=== PATIENT | male | born 1950 | race African-American/Black ===

== ENCOUNTER 2018-12-03 20:16 | Inpatient (IN) | payer OTHER ==
[~2018-12-03] VITALS: Ht 185.4 cm; Wt 71.2 kg
[2018-12-03] MEDS ORDERED: SODIUM CHLORIDE 0.9% 1,000 ML IV ONE (21:02)
[2018-12-03] MEDS ORDERED: PIPERACILLIN/TAZ 3.375G PREMIX 50 ML IV ONE (21:15)
[2018-12-03] MEDS ORDERED: VANCOMYCIN 1 G PREMIX 200 ML IV ONE (21:15)
[2018-12-03] MEDS ORDERED: SODIUM CHLORIDE 0.9% 1000ML BAG (SEPSIS BOLUS) IV ONE (21:15)
[2018-12-03] MEDS ORDERED: HYDROCORTISONE SOD SUCCINATE 100 MG/2 ML VIAL IV ONE (21:15)
[2018-12-03 21:23] LABS: BG BASE EXCESS 0.4 mmol/L (-2.0-2.0); BG CARBOXYHEMOGLOBIN 2.3 % (0.5-1.5); BG FRACTION INSPIRED OXYGEN 21; BG HCO3 ACT 23.3 mmol/L (22.0-26.0); BG METHEMOGLOBIN 0.3 % (0.0-1.5); BG OXYGEN SATURATION 94.9 % (92.0-98.5); BG OXYHEMOGLOBIN 92.4 % (94.0-97.0); BG PCO2 28.7 mmHg (35.0-45.0); BG PH 7.528 (7.350-7.450); BG PO2 73.5 mmHg (75.0-100.0); BG SAMPLE SITE RIGHT RADIAL; BG TOTAL HEMOGLOBIN 4.7 g/dL (12.0-18.0); BG VENT MODE ROOM AIR
[2018-12-03 21:41] LABS: MEAN CORPUSCULAR HEMOGLOBIN 33.9 pg (28.0-32.0); MEAN CORPUSCULAR VOLUME 101.5 fL (80.0-94.0); MEAN PLATELET VOLUME 7.2 fl (7.4-10.4); RED BLOOD CELL COUNT 1.41 mill/uL (4.7-6.1); RED CELL DISTRIBUTION WIDTH 21.7 % (11.6-14.6)
[2018-12-03 21:46] LABS: CHLORIDE 106 mEq/L (98-107)
[2018-12-03 21:50] LABS: ETHANOL BLOOD < 10 mg/dL; HEMATOCRIT. 14.3 % (42.0-52.0)
[2018-12-03 21:51] LABS: HEMOGLOBIN. 4.8 g/dL (14.0-18.0); INR 1.5; PLATELET 33 x1000/uL (130-400)
[2018-12-03 22:32] LABS: NUCLEATED RED BLOOD CELLS 2 /100 WBC
[2018-12-03 22:33] LABS: PLATELET ESTIMATE MARKEDLY DECREASED
[2018-12-04] VITALS (60 sets, daily range): BP systolic 105–165; BP diastolic 58–105
[2018-12-04] MEDS ORDERED: SODIUM CHLORIDE 0.9% 1,000 ML IV ONE (01:02)
[2018-12-04] MEDS ORDERED: NOREPINEPHRINE 4 MG in DEXT 5% WATER 246 ML IV ONE (01:30)
[2018-12-04] MEDS ORDERED: NOREPINEPHRINE 4MG/250ML PMX 250 ML IV PRN (01:45)
[2018-12-04] MEDS ORDERED: DOCUSATE SODIUM 100MG CAPSULE PO PRN (03:45)
[2018-12-04] MEDS ORDERED: ONDANSETRON HCL 4MG/2ML INJ IV PRN (03:45)
[2018-12-04] MEDS ORDERED: HYDROCODONE/ACETAMINOPHEN 5/325MG TABLET PO PRN (03:45)
[2018-12-04] MEDS ORDERED: ACETAMINOPHEN 325MG TABLET PO PRN (03:45)
[2018-12-04] MEDS ORDERED: GUAIFENESIN 200MG/10ML SUGAR FREE UDC PO PRN (03:45)
[2018-12-04] MEDS ORDERED: CLONIDINE 0.1MG TABLET PO PRN (03:45)
[2018-12-04] MEDS ORDERED: NOREPINEPHRINE 8 MG in DEXT 5% WATER 242 ML IV PRN (05:22)
[2018-12-04] MEDS: SODIUM CHLORIDE 0.9% 1,000 ML IV SCH (05:29)
[2018-12-04] MEDS ORDERED: LEVOFLOXACIN 500MG PREMIX 100 ML IV NR (06:00)
[2018-12-04 06:36] LABS: HEMOGLOBIN 4.6 g/dL (14.0-18.0)
[2018-12-04 06:37] LABS: HEMATOCRIT 13.8 % (42.0-52.0)
[2018-12-04] MEDS ORDERED: VANCOMYCIN 1250MG in DEXTROSE 5% WATER 250ML IV SCH (10:00)
[2018-12-04 15:53] LABS: BG CARBOXYHEMOGLOBIN 2.7 % (0.5-1.5); BG DEOXYHEMOGLOBIN 15.4 % (0.0-5.0); BG FRACTION INSPIRED OXYGEN 44; BG HCO3 ACT 18.9 mmol/L (22.0-26.0); BG METHEMOGLOBIN 0.3 % (0.0-1.5); BG OXYGEN SATURATION 84.1 % (92.0-98.5); BG OXYHEMOGLOBIN 81.6 % (94.0-97.0); BG PCO2 25.6 mmHg (35.0-45.0); BG PH 7.487 (7.350-7.450); BG PO2 49.2 mmHg (75.0-100.0); BG SAMPLE SITE RIGHT BRACHIAL; BG TOTAL HEMOGLOBIN 6.2 g/dL (12.0-18.0); BG VENT MODE NASAL CANNULA
[2018-12-04 16:23] LABS: BG BASE EXCESS -5.8 mmol/L (-2.0-2.0); BG CARBOXYHEMOGLOBIN 2.5 % (0.5-1.5); BG DEOXYHEMOGLOBIN 1.9 % (0.0-5.0); BG HCO3 ACT 16.5 mmol/L (22.0-26.0); BG METHEMOGLOBIN 0.7 % (0.0-1.5); BG OXYHEMOGLOBIN 94.9 % (94.0-97.0); BG PCO2 21.4 mmHg (35.0-45.0); BG PH 7.505 (7.350-7.450); BG PO2 111.4 mmHg (75.0-100.0); BG SAMPLE SITE RIGHT RADIAL; BG TOTAL HEMOGLOBIN 6.9 g/dL (12.0-18.0); BG VENT MODE NASAL CANNULA
[2018-12-04] MEDS ORDERED: IPRATROPIUM/ALBUTEROL 0.5-3(2.5)MG/3ML NEB HHN PRN (16:45)
[2018-12-04 20:04] LABS: CLARITY URINE TURBID (CLEAR); COLOR URINE ORANGE (YELLOW); KETONES URINE NEGATIVE (NEGATIVE); LEUKOCYTE ESTERASE URINE 2+ (NEGATIVE); NITRITE URINE NEGATIVE (NEGATIVE); OCCULT BLOOD URINE 3+ (NEGATIVE); PROTEIN URINE 2+ (NEGATIVE); SPECIFIC GRAVITY URINE 1.016 (1.005-1.030)
[2018-12-04] MEDS ORDERED: DIPHENHYDRAMINE 50MG/ML VIAL IV PRN (20:15)
[2018-12-04] MEDS ORDERED: ACETAMINOPHEN 650MG SUPP PR PRN (20:15)
[2018-12-04 20:19] LABS: *AMPHETAMINES SCREEN URINE NEGATIVE (NEGATIVE); *BARBITURATES SCREEN URINE NEGATIVE (NEGATIVE)
[2018-12-04 20:20] LABS: *BENZODIAZEPINES SCREEN URINE NEGATIVE (NEGATIVE); *COCAINE SCREEN URINE NEGATIVE (NEGATIVE); CANNABINOID URINE SCREEN NEGATIVE (NEGATIVE); METHADONE URINE SCREEN NEGATIVE (NEGATIVE); OPIATES URINE SCREEN NEGATIVE (NEGATIVE); PHENCYCLIDINE URINE SCREEN NEGATIVE (NEGATIVE)
[2018-12-04 21:18] LABS: HEMATOCRIT 21.6 % (42.0-52.0); HEMOGLOBIN 7.1 g/dL (14.0-18.0); MEAN CORPUSCULAR HEMOGLOBIN 32.3 pg (28.0-32.0); MEAN CORPUSCULAR VOLUME 98.5 fL (80.0-94.0); RED BLOOD CELL COUNT 2.19 mill/uL (4.7-6.1); RED CELL DISTRIBUTION WIDTH 25.2 % (11.6-14.6)
[2018-12-04 21:38] LABS: PLATELET 29 x1000/uL (130-400)
[2018-12-05] VITALS (46 sets, daily range): BP systolic 81–153; BP diastolic 44–91
[2018-12-05] MEDS: SODIUM CHLORIDE 0.9% 1,000 ML IV SCH ×3 (05:13→20:30)
[2018-12-05 05:46] LABS: MEAN CORPUSCULAR HEMOGLOBIN 31.8 pg (28.0-32.0); MEAN CORPUSCULAR VOLUME 98.2 fL (80.0-94.0); MEAN PLATELET VOLUME 7.7 fl (7.4-10.4); RED BLOOD CELL COUNT 1.95 mill/uL (4.7-6.1); RED CELL DISTRIBUTION WIDTH 25.3 % (11.6-14.6)
[2018-12-05 05:53] LABS: CHLORIDE 116 mEq/L (98-107)
[2018-12-05] MEDS ORDERED: LEVOFLOXACIN 250MG PREMIX 50 ML IV SCH (06:00)
[2018-12-05 06:30] LABS: HEMATOCRIT. 19.2 % (42.0-52.0); HEMOGLOBIN. 6.2 g/dL (14.0-18.0); PLATELET 26 x1000/uL (130-400)
[2018-12-05 13:47] LABS: PLATELET ESTIMATE MARKEDLY DECREASED
[2018-12-05] MEDS ORDERED: DIPHENHYDRAMINE 50MG/ML VIAL IV SCH (14:45)
[2018-12-05 16:51] LABS: PHOSPHORUS 4.5 mg/dL (2.5-4.9)
[2018-12-05] MEDS ORDERED: VANCOMYCIN 1 G PREMIX 200 ML IV SCH (21:00)
== END 2018-12-05 22:13 | disposition short-term general hospital (02) | DRG 871 ==
LOC: ER 20:16 → EDBEDREQ 23:49 → EDBEDREQTM 23:49 → EDBEDREQSVC 12-04 01:18 → EDBEDREQDT 12-04 01:18 → EDBEDREQSVC 12-04 02:52 → ENRESERV 12-04 03:09 → SUPCPDRO 12-04 03:40 → MICUSO 12-04 04:19
PROVIDERS: ADMIT Hospitalist; ATTEND Hospitalist
PROC: 06HY33Z Insertion of Infusion Device into Lower Vein, Percutaneous Approach (ICD-10-PCS; 2018-12-03)
PROC: 30233N1 Transfusion of Nonautologous Red Blood Cells into Peripheral Vein, Percutaneous Approach (ICD-10-PCS; principal; 2018-12-04)
DX: A41.9 Sepsis, unspecified organism (principal); J96.00 Acute respiratory failure, unspecified whether with hypoxia or hypercapnia; E43 Unspecified severe protein-calorie malnutrition; N39.0 Urinary tract infection, site not specified; N17.9 Acute kidney failure, unspecified; I67.82 Cerebral ischemia; G93.49 Other encephalopathy; D61.818 Other pancytopenia; E87.0 Hyperosmolality and hypernatremia; E87.2 Acidosis; D68.9 Coagulation defect, unspecified; C96.9 Malignant neoplasm of lymphoid, hematopoietic and related tissue, unspecified; D63.8 Anemia in other chronic diseases classified elsewhere; R62.7 Adult failure to thrive; M71.21 Synovial cyst of popliteal space [Baker], right knee; N18.9 Chronic kidney disease, unspecified; D64.9 Anemia, unspecified; M71.22 Synovial cyst of popliteal space [Baker], left knee; D32.9 Benign neoplasm of meninges, unspecified; Z92.21 Personal history of antineoplastic chemotherapy; Z85.51 Personal history of malignant neoplasm of bladder; Z68.20 Body mass index [BMI] 20.0-20.9, adult
CPT/HCPCS: 36415; 36430; 36600; 71045; 80202; 80305; 80320; 82140; 82375; 82550; 82805; 82962; 83605; 83735; 83880; 84100; 84145; 84484; 85014; 85018; 85027; 86078; 86850; 86900; 86920; 87077; 87186; 93005; 93970; 96365; 96368; 96375; 99285; J1200; J1720; J1956; J2543; J3370; J3490; J7030; J7040; J7050; J7060; P9016; A4315; G0480

== ENCOUNTER 2019-01-09 08:51 | Emergency (ER) | payer OTHER ==
[~2019-01-09] VITALS: Ht 175.3 cm; Wt 72.0 kg
[2019-01-09] MEDS ORDERED: MORPHINE SULFATE 4 MG/ML CPJ (NOT FOR IM USE) IV STA ×2 (09:53→12:05)
[2019-01-09] MEDS ORDERED: SODIUM CHLORIDE 0.9% 1,000 ML IV ONE (12:05)
[2019-01-09] MEDS ORDERED: ONDANSETRON HCL 4MG/2ML INJ IV STA (12:05)
[2019-01-09 12:20] LABS: BASOPHILS % 0.4 % (0.0-2.0); EOSINOPHILS % 0.2 % (0.0-5.0); HEMOGLOBIN. 9.3 g/dL (14.0-18.0); LYMPHOCYTES % 12.2 % (20.0-50.0); MEAN CORPUSCULAR HEMOGLOBIN 32.2 pg (28.0-32.0); MEAN CORPUSCULAR VOLUME 100.4 fL (80.0-94.0); MEAN PLATELET VOLUME 7.2 fl (7.4-10.4); MONOCYTES % 10.9 % (2.0-8.0); NEUTROPHILS % 76.3 % (40.0-76.0); PLATELET 129 x1000/uL (130-400); RED BLOOD CELL COUNT 2.89 mill/uL (4.7-6.1); RED CELL DISTRIBUTION WIDTH 17.1 % (11.6-14.6)
[2019-01-09 12:26] LABS: CHLORIDE 106 mEq/L (98-107)
[2019-01-09 12:28] LABS: INR 1.3; PROTHROMBIN TIME 13.2 sec (9.6-11.0)
[2019-01-09] MEDS ORDERED: HYDROCODONE/ACETAMINOPHEN 5/325MG TABLET PO ONE (14:15)
[2019-01-09] MEDS ORDERED: ONDANSETRON HCL 4MG/2ML INJ IV ONE (18:15)
[2019-01-09] MEDS ORDERED: MORPHINE SULFATE 4 MG/ML CPJ (NOT FOR IM USE) IV ONE (18:15)
[2019-01-09 18:31] VITALS: BP 139/83
== END 2019-01-09 18:50 | disposition short-term general hospital (02) ==
LOC: ER 08:51 → CANBEDREQ 21:11
DX: S72.002A Fracture of unspecified part of neck of left femur, initial encounter for closed fracture (principal); D53.9 Nutritional anemia, unspecified; W01.0XXA Fall on same level from slipping, tripping and stumbling without subsequent striking against object, initial encounter; Y93.89 Activity, other specified; Y92.481 Parking lot as the place of occurrence of the external cause; Y99.8 Other external cause status
CPT/HCPCS: 36415; 73502; 80053; 85025; 85610; 86850; 86900; 86901; 93005; 96374; 96375; 96376; 99285; J2270; J2405; J7030